=== PATIENT | male | born 1970 | race Caucasian/White ===

== ENCOUNTER 2024-02-20 15:35 | Inpatient (IN) | payer OTHER ==
[~2024-02-20] VITALS: Ht 172.7 cm; Wt 126.9 kg
[~2024-02-20 15:35] MED LIST: Enoxaparin 40 MG/0.4 ML SYR SC SCH
[2024-02-20] MEDS ORDERED: Ondansetron HCl 2 MG / ML 2ML Vial IV PRN ×2 (15:55→23:15)
[2024-02-20 16:38] LABS: BASOPHILS ABSOLUTE AUTO 0.09 K/mm3 (0.00-0.23); BASOPHILS PERCENT AUTO 1 % (0-2); EOSINOPHILS ABSOLUTE AUTO 0.11 K/mm3 (0.00-0.68); EOSINOPHILS PERCENT AUTO 1 % (0-6); Hematocrit 44.7 % (37.0-53.0); IMMATURE GRAN ABSOLUTE AUTO 0.02 K/mm3 (0.00-0.10); IMMATURE GRAN PERCENT AUTO 0 % (0-1); LYMPHOCYTES ABSOLUTE AUTO 0.86 K/mm3 (0.84-5.20); LYMPHOCYTES PERCENT AUTO 10 % (21-46); MONOCYTES ABSOLUTE AUTO 0.95 K/mm3 (0.16-1.47); MONOCYTES PERCENT AUTO 11 % (4-13); Mean Corpuscular HGB 31.3 pg (26.0-34.0); Mean Corpuscular HGB Conc 33.6 g/dL (31.5-36.5); Mean Corpuscular Volume 93 fL (80-100); Mean Platelet Volume 10.1 fL (9.1-12.4); NEUTROPHILS ABSOLUTE AUTO 6.82 K/mm3 (1.96-9.15); NEUTROPHILS PERCENT AUTO 77 % (41-73); Platelet Count 287 K/mm3 (150-400); RDW Coefficient Variation 13.4 % (11.7-14.2); RDW Standard Deviation 45.6 fL (35.1-46.3); Red Blood Cell Count 4.79 M/mm3 (4.30-5.90); White Blood Cell Count 8.85 K/mm3 (4.00-11.30)
[2024-02-20 16:58] LABS: Albumin, Blood 3.5 g/dL (3.4-5.0); Albumin/Globulin Ratio 0.9 (0.8-1.8); Bilirubin, Total 1.7 mg/dL (0.1-1.0); Bun/Creatinine Ratio 20.7 (12.0-20.0); Calcium, Blood 9.1 mg/dL (8.5-10.1); Creatinine, Blood 0.87 mg/dL (0.60-1.20); Globulin, Blood 3.7 g/dL (2.2-4.0); Total Protein, Blood 7.2 g/dL (6.4-8.2)
[2024-02-20] MEDS ORDERED: Furosemide 10 MG / ML 2ML Vial IV ONE (20:45)
[2024-02-20] MEDS ORDERED: Labetalol HCL 5 MG/ML 4ML Injection (Single Dose) IV ONE (22:20)
[2024-02-20] MEDS ORDERED: NiCARdipine HCL 50 MG in NS 250 ML IV SCH (23:05)
[2024-02-21] VITALS (21 sets, daily range): BP systolic 143–201; BP diastolic 86–125
[2024-02-21] MEDS ORDERED: HydrALAZINE HCl 20 MG / ML 1ML Vial IV PRN (00:30)
--- NOTE | 2024-02-21 01:13 | NUR ---
ARRIVAL TO ICU PT ARRIVED TO ICU FROM ED AT APPROX 2356. PT A/O x4, ABLE TO ANSWER QUESTIONS APPROPRIATELY AND REPOSITION INDEPENDENTLY. PT DENIES CP AND SOB, PT TACHYPNEIC WITH ACTIVITY. PT ON RA UPON ARRIVAL TO ICU, PLACED ON 2 L N/C D/T O2 SATS STAYING AT 89%. AT THIS TIME O2 SATS > 90%. CARDIAC MONITORING REFLECTS NSR, HR 60s-70s. PT HYPERTENSIVE. AT TIME OF ARRIVAL PT ON NICARDIPINE GTT, SEE FLOWSHEET. SPOKE WITH HOSPITALIST AND NICARDIPINE DC'd AND HYDRALAZINE ORDERED, SEE EMAR. AT THIS TIME NICARDIPINE OFF. PIV TO RAC SL AT THIS TIME. 3+ EDEMA IN BUE AND 2+ EDEMA IN BLE. BLE RED IN COLOR, DRY. PT STATES SCROTAL EDEMA REPORTED IN ED HAS IMPROVED.
[2024-02-21] MEDS ORDERED: Lisinopril 20 MG Tab PO SCH (01:50)
--- NOTE | 2024-02-21 03:42 | NUR ---
TRANSFER NOTE PT TRANSFERED TO PCU. NO ACUTE CHANGES SINCE ARRIVAL TO ICU. MOTHER AT BEDSIDE. NICARDIPINE DC'd, SEE PREVIOUS NOTE.
[2024-02-21 04:26] LABS: BASOPHILS ABSOLUTE AUTO 0.09 K/mm3 (0.00-0.23); BASOPHILS PERCENT AUTO 1 % (0-2); EOSINOPHILS ABSOLUTE AUTO 0.15 K/mm3 (0.00-0.68); EOSINOPHILS PERCENT AUTO 2 % (0-6); Hematocrit 43.2 % (37.0-53.0); Hemoglobin 14.5 g/dL (13.5-17.5); IMMATURE GRAN ABSOLUTE AUTO 0.03 K/mm3 (0.00-0.10); IMMATURE GRAN PERCENT AUTO 0 % (0-1); LYMPHOCYTES ABSOLUTE AUTO 1.13 K/mm3 (0.84-5.20); LYMPHOCYTES PERCENT AUTO 14 % (21-46); MONOCYTES ABSOLUTE AUTO 0.77 K/mm3 (0.16-1.47); MONOCYTES PERCENT AUTO 9 % (4-13); Mean Corpuscular HGB 31.5 pg (26.0-34.0); Mean Corpuscular HGB Conc 33.6 g/dL (31.5-36.5); Mean Corpuscular Volume 94 fL (80-100); Mean Platelet Volume 10.3 fL (9.1-12.4); NEUTROPHILS ABSOLUTE AUTO 6.15 K/mm3 (1.96-9.15); NEUTROPHILS PERCENT AUTO 74 % (41-73); Platelet Count 272 K/mm3 (150-400); RDW Coefficient Variation 13.6 % (11.7-14.2); RDW Standard Deviation 46.1 fL (35.1-46.3); Red Blood Cell Count 4.61 M/mm3 (4.30-5.90); White Blood Cell Count 8.32 K/mm3 (4.00-11.30)
[2024-02-21 04:47] LABS: Albumin, Blood 3.3 g/dL (3.4-5.0); Albumin/Globulin Ratio 0.9 (0.8-1.8); Bilirubin, Total 2.1 mg/dL (0.1-1.0); Bun/Creatinine Ratio 17.3 (12.0-20.0); Calcium, Blood 8.9 mg/dL (8.5-10.1); Creatinine, Blood 0.81 mg/dL (0.60-1.20); Globulin, Blood 3.5 g/dL (2.2-4.0); Potassium, Blood 3.7 mmol/L (3.5-5.5); Total Protein, Blood 6.8 g/dL (6.4-8.2)
--- NOTE | 2024-02-21 06:38 | NUR ---
SHIFT SUMMARY ICU TX NEURO: A/OX4. PT STATES NORMAL SENSATION IN EXTREMETIES. PUPILS ROUND, REACTIVE AND EQUAL. NO HEAD ACHE. EQUAL STRENGTH THROUGHOUT. NO SIGNS OF WATERSHED STROKE AT THIS TIME. PT UNAWARE OF BASELINE BLOOD PRESSURE AT THIS TIME. CARDIAC: HYPERTENSIVE, MEDS STARTED. DEPENDENT EDEMA +2 THROUGHOUT. +3 BLE. PANNUS IS EDEMATOUS WELL. RADHA/WAXY APPEARANCE BLE. TOES ARE CYANOTIC- LIGHT BLANCHING NOTED. PT STATES USUALLY JUST THEIR LARGE TOE IS BLUE. DOPPLER PEDAL AND TIBIAL PULSES. LEFT RADIAL PULSE WEAKER THAN RIGHT BUT DEPENDENT EDEMA PRESENT. LUNGS: PT ON 2L NC OR CPAP WHILE SLEEPING. CRACKLES HEARD THROUGHOUT RIGHT LOBE AND LOWER LEFT LOBE. SKIN:CYANOSIS ON TOES. RADHA BLE.
[2024-02-21] MEDS ORDERED: Furosemide 10 MG/ML 4ML Vial IV SCH (09:00)
[2024-02-21 09:53] LABS: Source, Urine Clean Catch
[2024-02-21 09:59] LABS: Appearance, Urine Clear (Clear); Bilirubin, Urine Neg (Neg); Blood, Urine Neg (Neg); Color, Urine Yellow (P-Yellow); Glucose Qualitative, Urine Neg (Neg); Ketones, Urine Neg (Neg); Leukocyte Esterase, Urine Neg (Neg); Nitrite, Urine Neg (Neg); Protein, Urine 1+ (Neg); Urobilinogen, Urine NORM (Normal)
[2024-02-21 10:13] LABS: U Amphetamine Screen Not Detected; U Barbituate Screen Not Detected; U Benzodiazapine Screen Not Detected; U Buprenorphine Screen Not Detected; U Cannabinoids Screen Not Detected; U Cocaine Screen Not Detected; U Methadone Screen Not Detected; U Methamphetamine Screen Not Detected; U Opiates Screen Not Detected; U Oxycodone Screen Not Detected; U Phencyclidine Screen Not Detected
[2024-02-21 13:57] LABS: Percent Saturation 20.4 % (20.0-50.0)
--- NOTE | 2024-02-21 18:16 | NUR ---
SHIFT SUMMARY: NEURO: PT A&OX4. FOLLOWS COMMANDS. NO NEURO SYMPTOMS. CARDIAC: PT HAS BEEN HYPERTENSIVE THROUGHOUT THE SHIFT AND REQUIRED HYDRALAZINE. PROVIDER AWARE. DENIES ANY CP OR SOB. PT DID HAVE AN ECHO THIS AFTERNOON. RESP: PT TITRATED DOWN TO 2L NC. MAINTAINTS SATS AT 99%. DENIES ANY SOB. GI/: PT USED URINAL AT BEDSIDE INDEPENDENTLY ALL DAY. SKIN: SEE EDEMA/SKIN ASSESSMENT. NO SIGNIFICANT EVENTS HAPPENED DURING SHIFT.
--- NOTE | 2024-02-21 19:27 | NUR ---
SHIFT SUMMARY: NEURO: PT A&OX4. FOLLOWS COMMANDS. NO NEURO SYMPTOMS. CARDIAC: PT HAS BEEN HYPERTENSIVE THROUGHOUT THE SHIFT AND REQUIRED HYDRALAZINE. PROVIDER AWARE. DENIES ANY CP OR SOB. PT DID HAVE AN ECHO THIS AFTERNOON. AWAITING RESULTS. RESP: PT TITRATED DOWN TO 2L NC. MAINTAINTS SATS AT 99%. DENIES ANY SOB. GI/: PT USED URINAL AT BEDSIDE INDEPENDENTLY ALL DAY. SKIN: SEE EDEMA ASSESSMENT. NO SIGNIFICANT EVENTS HAPPENED DURING SHIFT.
--- NOTE | 2024-02-21 20:21 | NUR ---
ASSUMPTION OF CARE PLEASANT PATIENT. A&O X4. DENIES PAIN. BEING TREATED FOR HTN AND NEW HF. DIURESING. BP 156/93 AT THIS TIME, DECREASING SLOWLY. GOAL PER MD SBP 160-170. PT HAS MODERATE TO SEVERE EDEMA TO LE, BLE, AND ABD, PITTING. PT ENDORSES IMPROVEMENT SINCE ADMISSION. ON 2L O2 VIA NC, SATTING 97-98%. PT IS NOW SATTING 94% ON ROOM AIR, TOLERATING WELL. DENIES SOB. BREATHING APPEARS NONLABORED WITH EVEN CHEST RISE AND FALL. PT ENDORSES THAT ALL OF HIS NEEDS ARE MET AT THIS TIME.
[2024-02-22 00:43] VITALS: BP 179/112
[2024-02-22 00:53] VITALS: BP 181/103
[2024-02-22 02:36] VITALS: BP 118/71
[2024-02-22 03:39] VITALS: BP 147/97
--- NOTE | 2024-02-22 03:41 | NUR ---
PT EASILY AROUSABLE, RESTING WITH EYES CLOSED. EVEN CHEST RISE AND FALL. BP 147/97 THIS AM. HEMODYNAMICALLY STABLE AT THIS TIME.
[2024-02-22 04:02] LABS: Albumin, Blood 2.9 g/dL (3.4-5.0); Albumin/Globulin Ratio 0.9 (0.8-1.8); Bilirubin, Total 1.8 mg/dL (0.1-1.0); Calcium, Blood 9.2 mg/dL (8.5-10.1); Creatinine, Blood 0.88 mg/dL (0.60-1.20); Globulin, Blood 3.4 g/dL (2.2-4.0); Potassium, Blood 3.5 mmol/L (3.5-5.5); Total Protein, Blood 6.3 g/dL (6.4-8.2)
[2024-02-22 08:43] VITALS: BP 157/88
[2024-02-22] MEDS ORDERED: Spironolactone 12.5 MG TAB PO SCH (10:00)
[2024-02-22] MEDS ORDERED: Empagliflozin 10 MG TAB PO SCH (10:00)
[2024-02-22] MEDS ORDERED: STEGLATRO5 MG PO (11:33)
[2024-02-22] MEDS ORDERED: Aldactone25 MG PO (11:34)
[2024-02-22] MEDS ORDERED: FURO20 PO (11:34)
[2024-02-22] MEDS ORDERED: LISI20 PO (11:34)
--- NOTE | 2024-02-22 11:56 | NUR ---
Discharge instructions and educational materials for Heart Failure were reviewed with the pt. He was given a Heart Failure Daily Self Check from the [facility]. Pt has a followup appointment for next week and his prescriptions he will sisal picker from [facility] today. His mother is here to give him a ride home. IV removed by the PCT Edie and she accompanied him to the door for discharge.
[2024-02-22 15:14] LABS: HEPATITIS B SURFACE ANTIBODY <3.10 IU/L; HEPATITIS B SURFACE ANTIGEN Negative (Negative); HEPATITIS BE ANTIBODY Negative (Negative); HEPATITIS BE ANTIGEN Negative (Negative)
[2024-02-23 16:07] LABS: HCV QNT BY NAAT (IU/ML) Not Detected; HCV QNT BY NAAT (LOG IU/ML) Not Detected; HCV QNT BY NAAT INTERP Not Detected (Not Detected)
== END 2024-02-22 11:45 | disposition home or self-care (01) | DRG 280 ==
LOC: ER 15:35 → ICUE 22:16 → PCU 23:15 → ICUE 23:15 → PCU 02-21 03:32
PROVIDERS: Emergency Medicine; Family Medicine; ADMIT Internal Medicine
DX: I16.1 Hypertensive emergency (principal); I50.31 Acute diastolic (congestive) heart failure; I21.A1 Myocardial infarction type 2; J96.01 Acute respiratory failure with hypoxia; Z68.41 Body mass index [BMI] 40.0-44.9, adult; I27.20 Pulmonary hypertension, unspecified; K74.60 Unspecified cirrhosis of liver; E66.9 Obesity, unspecified; Z55.6 Problems related to health literacy; Z71.41 Alcohol abuse counseling and surveillance of alcoholic
CPT/HCPCS: 36415; 71046; 71260; 80053; 82728; 83540; 83550; 83690; 83880; 84484; 85025; 85379; 87522; 93005; 93010; 93306; 94660; 94760; 94762; 96374-59; 96375-59; 99285-25; A9270; G0378; J0360; J1650; J1940; J7050; Q9967